=== PATIENT | female | born 1980 | race Caucasian/White ===

== ENCOUNTER → 2021-06-18 | Outpatient (CLI) | payer OTHER | LOC: MAMMO 08:30 | DX: Z12.31 Encounter for screening mammogram for malignant neoplasm of breast (principal) ==

== ENCOUNTER → 2022-05-23 | Outpatient (CLI) | payer OTHER | LOC: MAMMO 08:00 | DX: Z12.31 Encounter for screening mammogram for malignant neoplasm of breast (principal) ==

== ENCOUNTER → 2024-05-23 | Outpatient (CLI) | payer BC | LOC: MAMMO 08:30 | DX: Z12.31 Encounter for screening mammogram for malignant neoplasm of breast (principal) ==